=== PATIENT | male | born 1980 | race Caucasian/White ===

== ENCOUNTER 2021-10-29 20:55 | Emergency (ER) | payer MEDICAID ==
[~2021-10-29] VITALS: Ht 167.6 cm; Wt 70.9 kg
[2021-10-30] MEDS ORDERED: IBUPROFEN 600 MG TABLET PO ONE (01:45)
[2021-10-30] MEDS ORDERED: HYDR-4723 PO (03:16)
[2021-10-30 07:23] VITALS: BP 118/72
== END 2021-10-30 06:30 | disposition home or self-care (01) ==
LOC: EMS 20:57
DX: S82.121A Displaced fracture of lateral condyle of right tibia, initial encounter for closed fracture (principal); M25.461 Effusion, right knee; F17.210 Nicotine dependence, cigarettes, uncomplicated; X58.XXXA Exposure to other specified factors, initial encounter; Y93.89 Activity, other specified; Y92.89 Other specified places as the place of occurrence of the external cause; Y99.8 Other external cause status
CPT/HCPCS: 99283

== ENCOUNTER 2023-02-14 04:31 | Emergency (ER) | payer SELFPAY ==
[~2023-02-14] VITALS: Ht 157.5 cm; Wt 48.2 kg
[~2023-02-14 04:31] MED LIST: HYDR-4723 PO
[2023-02-14 05:03] VITALS: BP 143/99
== END 2023-02-14 08:20 | disposition home or self-care (01) ==
LOC: EMS 04:31
DX: S00.93XA Contusion of unspecified part of head, initial encounter (principal); F17.210 Nicotine dependence, cigarettes, uncomplicated; F15.90 Other stimulant use, unspecified, uncomplicated; V89.2XXA Person injured in unspecified motor-vehicle accident, traffic, initial encounter; Y93.89 Activity, other specified; Y92.89 Other specified places as the place of occurrence of the external cause; Y99.8 Other external cause status
CPT/HCPCS: 99281; Z7502

== ENCOUNTER 2023-05-08 05:38 | Emergency (ER) | payer SELFPAY ==
[~2023-05-08] VITALS: Ht 170.2 cm; Wt 65.9 kg
[2023-05-08 06:04] VITALS: BP 142/89; PULSE 78; RESP 16; TEMP 98.8
== END 2023-05-08 06:13 | disposition left against medical advice (07) ==
LOC: EMS 05:39
DX: M54.2 Cervicalgia (principal); Z53.21 Procedure and treatment not carried out due to patient leaving prior to being seen by health care provider
CPT/HCPCS: 99281; Z7502